=== PATIENT | female | born 1985 | race Caucasian/White ===

== ENCOUNTER → 2023-08-25 10:42 | Outpatient (CLI) | payer BC, SELFPAY ==
--- NOTE | ~2023-08-25 | US_ITS ---
EXAMINATION: US thyroid DATE: 08/25/2023 11:00 INDICATION: Rosibel thyroiditis. Thyroid nodule. TECHNIQUE: Multiple ultrasound images of the thyroid were obtained. COMPARISON: None. FINDINGS: The right thyroid lobe measures 4.8 x 1.9 x 1.3 cm. The left thyroid lobe measures 4.0 x 1.3 x 1.2 c m. The thyroid is diffusely heterogeneous and hypoechoic. Vascularity is increased. In the left thyr oid lobe, there is a 10 mm solid, hyperechoic, wider than tall nodule with smooth margin without echo genic foci (TI-RADS TR3). IMPRESSION: 1. Heterogeneous, hypervascular thyroid, consistent with chronic lymphocytic (Rosibel) thyroiditis. 2. Small thyroid nodule, likely not clinically significant. No follow-up is needed. Reviewed, dictated and finalized at location A. GLOBAL IMPRESSION: 1. Heterogeneous, hypervascular thyroid, consistent with chronic lymphocytic (H ashimoto) thyroiditis. 2. Small thyroid nodule, likely not clinically significant. No follow-up is nee ded.
== END ==
PROVIDERS: PCP Family Medicine; Visit Provider Family Medicine
DX: E06.3 Autoimmune thyroiditis (principal); E01.0 Iodine-deficiency related diffuse (endemic) goiter
CPT/HCPCS: 76536